=== PATIENT | female | born 1940 | race Asian ===

== ENCOUNTER 2017-12-28 04:12 | Emergency (ER) | payer MEDICARE, OTHER ==
[2017-12-28] MEDS ORDERED: KETOROLAC 60 MG/2 ML VIAL IM STA (04:42)
--- NOTE | 2017-12-28 04:51 | ED Physician Documentation ---
History of Present Illness - Stated complaint Stated Complaint: NECK,LT SHOULDER PAIN - Chief complaint Chief Complaint: General - History obtained from History obtained from: Patient - Additonal information Additional information: 77-year-old female presents to the emergency department with chronic pain. The patient has chronic neck pain and head pain. Today the patient had ongoing symptoms despite taking Tylenol. The patient's pain in her left paraspinal muscles are her typical pain that goes into her trapezius. The patient denies new or different trauma. The patient denies vision changes, fever, motor weakness, sensory changes, lower leg weakness or saddle anesthesia. The patient has been evaluated for this by her primary care and has had an extensive workup per the and . The patient denies chest pain, shortness of breath, dyspnea on exertion. Symptoms are described as moderate. No other associated symptoms. No triggering factors Review of Systems Constitutional: denies: Fever, Chills Eyes: denies: Decreased vision Ears: denies: Ear pain Nose: denies: Congestion Throat: denies: Sore throat Cardiac: denies: Chest pain / pressure Respiratory: denies: Cough GI: denies: Abdominal Pain Musculoskeletal: reports: Neck pain. denies: Back pain, Joint swelling Neurologic: reports: Headache. denies: Focal weakness, Numbness, Difficulty speaking, Near syncope, Confused, Altered mental status, LOC Immunocompromised: denies: Chemotherapy PD PAST MEDICAL HISTORY - Past Medical History Cardiovascular: Hypertension Respiratory: Shortness of breath Endocrine/Autoimmune: HyPOthyroidism GI: GERD : None HEENT: None Psych: Depression Musculoskeletal: Osteoarthritis Derm: None - Past Surgical History Past Surgical History: Yes Ortho: Carpal Tunnel surgery HEENT: Cataracts - Present Medications Home Medications: Ambulatory Orders Medication Instructions Recorded Confirmed Albuterol [Ventolin Hfa] 2 puffs INH Q4H PRN 03/22/14 04/16/16 Aspirin [Aspir 81] 81 mg ORAL DAILY 03/22/14 04/16/16 Levothyroxine [Synthroid] 50 mcg ORAL DAILY 03/22/14 04/16/16 Omeprazole/Sodium Bicarbonate 20 mg ORAL DAILY 03/22/14 04/16/16 [Omeprazole-Bicarb 20-1,100 Cap] Alendronate [Fosamax] 70 mg PO DAILY 04/16/16 04/16/16 Cholecalciferol (Vitamin D3) 2,000 unit PO 12/28/17 [Vitamin D] - Allergies Allergies/Adverse Reactions: Allergies Allergy/AdvReac Type Severity Reaction Status Date / Time Eeojbbq-Ayx-Iqa Reductase AdvReac Unknown Verified 12/28/17 04:28 Inhibitor - Social History Does the pt smoke?: No Smoking Status: Never smoker Does the pt have substance abuse?: No - Immunizations Immunizations are current?: No Immunizations: Other immun not current PD ED PE NORMAL - General General: Alert and oriented X 3, No acute distress - HEENT HEENT: Atraumatic, PERRL, EOMI, Ears normal - Neck Neck: Supple, no meningeal sign, No bruit, Other (The patient has full active range of motion of the neck, patient has no tenderness along the spinous processes. The patient has tenderness in the left paraspinal muscles, trapezius. There is no erythematous changes, no bogginess, no crepitus or subcutaneous emphysema. There is no cellulitis or signs of abscess. 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, No motor deficit, Normal speech - Psych Psych: Normal mood PD ED PE EXPANDED - HEENT HEENT Visual: 1 - tenderness 2 - tenderness Results - Vitals Vitals: Vital Signs - 24 hr 12/28/17 12/28/17 12/28/17 04:23 05:03 05:44 Temperature 36.6 C Heart Rate 61 63 Respiratory 20 20 Rate Blood Pressure 154/137 H 155/99 H 166/86 H O2 Saturation 98 97 Oxygen O2 Source Room air - EKG (time done) 04:21 Rate: Rate (enter#) Rhythm: NSR Intervals: Normal [place], QRS normal Ischemia: Non specific changes Other comments: Other comments (Normal sinus rhythm, no acute ischemic changes when compared to a recent EKG) Compare to prior EKG: Unchanged from prior EKG - Rads (name of study) CT Head/Neck Radiology: Final report received (Impression of the CT head no acute intracranial abnormality. CT of the cervical spine no acute fracture or bony abnormality) PD MEDICAL DECISION MAKING - Sepsis Event Vital Signs: Vital Signs - 24 hr 12/28/17 12/28/17 12/28/17 04:23 05:03 05:44 Temperature 36.6 C Heart Rate 61 63 Respiratory 20 20 Rate Blood Pressure 154/137 H 155/99 H 166/86 H O2 Saturation 98 97 Oxygen O2 Source Room air Departure - Departure Disposition: 01 Home, Self Care Clinical Impression: Cervical muscle strain Qualifiers: Encounter type: initial encounter Qualified Code(s): S16.1XXA - Strain of muscle, fascia and tendon at neck level, initial encounter Headache Qualifiers: Headache type: unspecified Headache chronicity pattern: unspecified pattern Intractability: not intractable Qualified Code(s): R51 - Headache Condition: Good Comments: Please follow-up with your primary care doctor this coming week for further workup and management of your chronic pain. Please return to the emergency department immediately for worsening symptoms or any concerns
--- NOTE | 2017-12-28 05:41 | CT Report ---
Procedure Date: 12/28/2017 Accession Number: [id number] / [id number] Procedure: CT - Head W/O CPT Code: FULL RESULT: EXAM: CT HEAD EXAM DATE: 12/28/2017 05:11 AM. CLINICAL HISTORY: Head/neck pain. COMPARISON: CT head 01/11/2008. TECHNIQUE: Multiaxial CT images were obtained from the foramen magnum to the vertex. Reformats: Coronal. IV contrast: None. In accordance with CT protocol optimization, one or more of the following dose reduction techniques were utilized for this exam: automated exposure control, adjustment of mA and/or KV based on patient size, or use of iterative reconstructive technique. FINDINGS: Parenchyma: No intraparenchymal hemorrhage. No evidence of mass, midline shift, or CT findings of infarction. Prieto-white differentiation is distinct. There is mild chronic microvascular changes in the deep white matter. Extraaxial Spaces: There is mild age-appropriate generalized cerebral volume loss. No subdural or epidural collections identified. There is an ossified protrusion arising from the inner table of the left frontal calvarium measuring approximately 13 mm in transverse diameter and 9 mm in depth. This may represent an osteoma or small calcified meningioma. This is unchanged compared to 2007. Ventricles: Normal in size and position. Sinuses and Orbits: Imaged paranasal sinuses, orbits, and mastoids show no significant abnormality. Bones: No evidence of fracture or calvarial defect. Other: None. IMPRESSION: 1. No acute intracranial abnormality. 2. There is a 13 x 9 mm osseous protuberance from the inner table of the left frontal calvarium. This could represent a small osteoma or calcified meningioma. This is unchanged compared to the prior CT on 01/11/2008. 3. Mild age-related generalized cerebral volume loss and chronic microvascular change. RADIA
[2017-12-28 05:45] VITALS: BP 166/86
--- NOTE | 2017-12-28 05:49 | CT Report ---
Procedure Date: 12/28/2017 Accession Number: [id number] / [id number] Procedure: CT - Cervical Spine W/O CPT Code: FULL RESULT: EXAM: CT CERVICAL SPINE WITHOUT CONTRAST DATE: 12/28/2017 05:16 AM. HISTORY: Head/neck pain. COMPARISONS: None. TECHNIQUE: Thin-section axial images were acquired of the cervical spine without contrast. Post-processing: Coronal and sagittal reformats. Other: None. In accordance with CT protocol optimization, one or more of the following dose reduction techniques were utilized for this exam: automated exposure control, adjustment of mA and/or KV based on patient size, or use of iterative reconstructive technique. FINDINGS: Alignment: No scoliosis or spondylolisthesis. Bones: No fracture or bone lesion. Interspace Levels/Facets: C1-C2: Unremarkable. C2-C3: There is mild ligamentum flavum ossification to the right of midline. No significant canal or foraminal stenosis. C3-C4: There is mild left facet hypertrophy. No significant canal or foraminal stenosis. C4-C5: Mild anterior spurring and disk bulging. There is mild to moderate left facet hypertrophy. No significant canal or foraminal stenosis. C5-C6: Mild anterior spurring and disk bulging. Mild left facet hypertrophy. No significant canal or foraminal stenosis. C6-C7: Mild anterior spurring. No significant canal or foraminal stenosis. C7-T1: Mild anterior spurring. Ligamentum flavum ossification is present on the right. No significant canal or foraminal stenosis. Musculature: Unremarkable. Other: The paravertebral and prevertebral soft tissues are unremarkable. The lung apices are clear. IMPRESSION: 1. No evidence of a cervical spine fracture or subluxation. 2. Yqfc-wb-bazhfknq multilevel cervical spondylosis. There is no significant canal or neural foramen stenosis at any level. RADIA
== END 2017-12-28 06:33 | disposition home or self-care (01) ==
LOC: ED 04:12
DX: S16.1XXA Strain of muscle, fascia and tendon at neck level, initial encounter (principal); X58.XXXA Exposure to other specified factors, initial encounter; R51 Headache; I10 Essential (primary) hypertension; M19.90 Unspecified osteoarthritis, unspecified site; Z79.82 Long term (current) use of aspirin
CPT/HCPCS: 70450; 72125; 93005; 96372; 99283

== ENCOUNTER 2018-03-28 18:53 | Emergency (ER) | payer MEDICARE, OTHER ==
[2018-03-28] MEDS ORDERED: IOPAMIDOL-300 100 ML VIAL IVP ONE ×2 (18:54→21:20)
--- NOTE | 2018-03-28 19:20 | ED Physician Documentation ---
PD HPI HEENT - Stated complaint Stated Complaint: LT EAR RINGING - Chief complaint Chief Complaint: Heent - History obtained from History obtained from: Patient, Family - History of Present Illness Timing - onset: Yesterday (Starting yesterday evening she noticed pulsatility that is quite bothersome in her left ear. It is worse when she is laying down on either side and it kept her from sleeping all last night. It is associated with a slight increase in her chronic unsteadiness. She denies any specific chest pain or trouble breathing. She is never had this before.) Review of Systems Constitutional: denies: Fever, Chills Eyes: denies: Loss of vision, Decreased vision, Photophobia Ears: reports: Tinnitus/ringing. denies: Loss of hearing, Ear pain, Drainage/discharge, Foreign body Nose: denies: Rhinorrhea / runny nose, Congestion PD PAST MEDICAL HISTORY - Past Medical History Cardiovascular: Hypertension Respiratory: Shortness of breath Endocrine/Autoimmune: HyPOthyroidism GI: GERD : None HEENT: None Psych: Depression Musculoskeletal: Osteoarthritis Derm: None - Past Surgical History Past Surgical History: Yes Ortho: Carpal Tunnel surgery HEENT: Cataracts - Present Medications Home Medications: Ambulatory Orders Medication Instructions Recorded Confirmed Albuterol [Ventolin Hfa] 2 puffs INH Q4H PRN 03/22/14 04/16/16 Aspirin [Aspir 81] 81 mg ORAL DAILY 03/22/14 04/16/16 Levothyroxine [Synthroid] 50 mcg ORAL DAILY 03/22/14 04/16/16 Omeprazole/Sodium Bicarbonate 20 mg ORAL DAILY 03/22/14 04/16/16 [Omeprazole-Bicarb 20-1,100 Cap] Alendronate [Fosamax] 70 mg PO DAILY 04/16/16 04/16/16 Cholecalciferol (Vitamin D3) 2,000 unit PO 12/28/17 [Vitamin D] - Allergies Allergies/Adverse Reactions: Allergies Allergy/AdvReac Type Severity Reaction Status Date / Time Vorhtph-Fsa-Btb Reductase AdvReac Unknown Verified 03/28/18 19:00 Inhibitor - Social History Does the pt smoke?: No Smoking Status: Never smoker Does the pt have substance abuse?: No - Immunizations Immunizations are current?: No Immunizations: Other immun not current - POLST Patient has POLST: No PD ED PE NORMAL - Vitals Vital signs reviewed: Yes - General General: Alert and oriented X 3, No acute distress - HEENT HEENT: PERRL, EOMI, Other (TMs are normal without significant cerumen load, no carotid bruit.) - Cardiac Cardiac: RRR, No murmur - Respiratory Respiratory: No respiratory distress, Clear bilaterally - Abdomen Abdomen: Non tender - Extremities Extremities: No edema, No calf tenderness / cord - Neuro Neuro: Alert and oriented X 3, Normal speech Results - Vitals Vitals: Vital Signs - 24 hr 03/28/18 18:56 Temperature 36.5 C Heart Rate 77 Respiratory 16 Rate Blood Pressure 163/77 H O2 Saturation 97 Oxygen O2 Source Room air - EKG (time done) 1924 Rate: Rate (enter#) (72) Rhythm: NSR [place]: LAD Intervals: Normal [place] QRS: Low voltage Ischemia: Normal ST segments Computer interpretation: Agree with computer - Rads (name of study) CTA neck Radiology: EMP read contemporaneously (Multifocal stenosis concerning for some type of vasculitis.) PD MEDICAL DECISION MAKING - ED course ED course: 77-year-old woman with new pulsatile tinnitus in the left ear. Concern for something like carotid dissection, however CT angiogram does not show anything like this, there is a concern for intracranial vasculitis. She has no strokelike symptoms, no headaches. Follow-up was advised. - Sepsis Event Vital Signs: Vital Signs - 24 hr 03/28/18 18:56 Temperature 36.5 C Heart Rate 77 Respiratory 16 Rate Blood Pressure 163/77 H O2 Saturation 97 Oxygen O2 Source Room air Departure - Departure Disposition: 01 Home, Self Care Clinical Impression: Pulsatile tinnitus of left ear, Vasculitis Condition: Good Record reviewed to determine appropriate education?: Yes Comments: Your lab work is normal. The CAT scan of your brain with contrast is concerning for some type of vasculitis, this would be an inflammatory Disease of the blood vessels. Close follow-up is necessary. Follow-up with your doctor tomorrow to discuss appropriate referrals for this. Take a baby aspirin a day until otherwise advised.
[2018-03-28 19:43] LABS: BASOPHILS # (AUTO) 0.1 10^3/uL (0.0-0.1); BASOPHILS % (AUTO) 1.4 %; EOSINOPHILS # (AUTO) 0.2 10^3/uL (0.0-0.7); HGB - HEMOGLOBIN 14.8 g/dL (12.0-16.0); LYMPHOCYTES # (AUTO) 1.9 10^3/uL (1.5-3.5); LYMPHOCYTES % (AUTO) 42.7 %; MEAN CORPUSCULAR HEMOGLOBIN 29.3 pg (27.0-31.0); MEAN CORPUSCULAR HGB CONC 33.8 g/dL (32.0-36.0); MEAN CORPUSCULAR VOLUME 86.7 fL (81.0-99.0); MEAN PLATELET VOLUME 7.3 fL (7.9-10.8); MONOCYTES # (AUTO) 0.3 10^3/uL (0.0-1.0); MONOCYTES % (AUTO) 5.9 %; PLT - PLATELET COUNT 198 10^3/uL (130-450); RED BLOOD COUNT 5.04 10^6/uL (4.20-5.40); RED CELL DISTRIBUTION WIDTH 13.6 % (12.0-15.0); WHITE BLOOD COUNT 4.4 x10^3/uL (4.8-10.8)
[2018-03-28 20:05] LABS: ALBUMIN 4.2 g/dL (3.2-5.5); ALBUMIN/GLOBULIN RATIO 1.3 (1.0-2.2); BILIRUBIN,TOTAL 0.6 mg/dL (0.2-1.0); CALCIUM 9.6 mg/dL (8.5-10.3); CREATININE 0.8 mg/dL (0.4-1.0); TOTAL PROTEIN 7.5 g/dL (6.7-8.2)
[2018-03-28] MEDS ORDERED: IOPAMIDOL-300 100 ML VIAL ONE (20:31)
--- NOTE | 2018-03-28 21:59 | CT Report ---
Reason: pulsatile tinnitus with left neck pain Procedure Date: 03/28/2018 Accession Number: [id number] / [id number] Procedure: CT - Neck Angio CPT Code: FULL RESULT: EXAM: CT ANGIOGRAM NECK. EXAM DATE: 03/28/2018 09:16 PM. CLINICAL HISTORY: Pulsatile tinnitus with left neck pain. COMPARISON: CT head 12/28/2017. TECHNIQUE: Routine axial helical imaging was performed from the skull base through the aortic arch. Reconstructions: Routine multiplanar 3D MIP reconstructions. IV Contrast: 80 mL ISOVUE 300. Evaluation of arterial stenosis is based on a NASCET method of measurement. In accordance with CT protocol optimization, one or more of the following dose reduction techniques were utilized for this exam: automated exposure control, adjustment of mA and/or KV based on patient size, or use of iterative reconstructive technique. FINDINGS: Right Carotid: The common carotid, internal carotid, and external carotid arteries are widely patent. No dissection, significant atherosclerotic plaque, or calcification identified. Left Carotid: The common carotid, internal carotid, and external carotid arteries are widely patent. No dissection is identified. Trace atherosclerotic plaque is seen along the posterior aspect of the carotid bulb. Vertebrals: No hemodynamically significant narrowing or abrupt caliber change is present in the vertebral artery. The left vertebral artery is slightly dominant. There is minimal narrowing at the origin of the left vertebral artery. Intracranial Circulation: Not seen in its entirety. There is an anterior communicating artery present. There is mild to moderate stenosis involving the proximal M1 segment of the left MCA. A high-grade stenosis is present at the origin of the A1 segment left MAT. There is moderate to severe stenosis involving the supraclinoid left ICA extending to the carotid terminus. Moderate stenoses are present in the A1 segment of the left MAT. There is an anterior communicating artery present. Minimal narrowing is seen at the origin of the A1 segment of the right MAT and in the M1 segment of the right MCA. No high-grade stenosis is seen in either distal vertebral artery or on the basilar trunk. A slightly narrowed appearance to the left vertebral artery where it enters the dura was felt to be physiologic. Expected enhancement is seen in the transverse sinus bilaterally. Atherosclerotic plaque is seen involving the cavernous ICA bilaterally with mild narrowing present. Other: Great vessel origins are patent. No mass is present in either parotid gland or submandibular gland. There are small hypervascular nodules measuring under 5 mm in the right thyroid lobe. No mass is present in either orbit. No bulky lymphadenopathy is identified along either internal jugular chain. Visualized lung apices are clear. Mastoid air cells and the middle ear cavity are well-aerated bilaterally. No suspicious lytic or blastic region is present involving the skull base. IMPRESSION: 1. No hemodynamically significant stenosis is present in either cervical ICA or either cervical vertebral artery. There is minimal narrowing at the origin of the dominant left vertebral artery. 2. Stenoses are seen in the anterior circulation greater on the left relative to the right. This might well be on the basis of atherosclerosis. The involvement of the carotid terminus on the left raises the possibility of other etiologies including a vasculopathy such as a moyamoya-like process. 3. No significant narrowing is seen in the posterior circulation. 4. Expected enhancement is seen in the major dural venous sinuses. 5. Small enhancing nodules are seen in the right thyroid lobe. CT cannot distinguish benign from malignant thyroid disease. 6. Middle ear cavity and mastoid air cells are well aerated bilaterally. RADIA
[2018-03-28 22:13] VITALS: BP 179/93
== END 2018-03-28 22:19 | disposition home or self-care (01) ==
LOC: ED 18:53
DX: H93.A2 Pulsatile tinnitus, left ear (principal); I67.7 Cerebral arteritis, not elsewhere classified; I10 Essential (primary) hypertension; E03.9 Hypothyroidism, unspecified; Z79.82 Long term (current) use of aspirin
CPT/HCPCS: 36415; 70498; 80053; 83690; 84484; 85025; 93005; 99283; Q9967

== ENCOUNTER 2018-06-23 08:31 | Emergency (ER) | payer MEDICARE, OTHER ==
--- NOTE | 2018-06-23 08:51 | ED Physician Documentation ---
History of Present Illness - Stated complaint Stated Complaint: SIDE PX - Chief complaint Chief Complaint: General - Additonal information Additional information: hx from pt 77 female to ED with RUQ pain onset approx 45 min ago now resolved was severe no fever no cough no soa no NVD no urinary sx states hx of same many times in the past - sometimes right sided sometimes left sided - has seen PMD Dr Finch and had urine blood and CT scan and no cause has been identified no recent illness travel no prior surgery Review of Systems Constitutional: denies: Fever, Chills Cardiac: denies: Chest pain / pressure Respiratory: denies: Dyspnea GI: reports: Abdominal Pain. denies: Nausea, Vomiting, Diarrhea : denies: Dysuria Musculoskeletal: denies: Back pain Endocrine: denies: Easy bruising / bleeding Immunocompromised: denies: Immunocompromised PD PAST MEDICAL HISTORY - Past Medical History Cardiovascular: Hypertension Respiratory: Shortness of breath Endocrine/Autoimmune: HyPOthyroidism GI: GERD : None HEENT: None Psych: Depression Musculoskeletal: Osteoarthritis Derm: None - Past Surgical History Past Surgical History: Yes Ortho: Carpal Tunnel surgery HEENT: Cataracts - Present Medications Home Medications: Ambulatory Orders Medication Instructions Recorded Confirmed Albuterol [Ventolin Hfa] 2 puffs INH Q4H PRN 03/22/14 04/16/16 Aspirin [Aspir 81] 81 mg ORAL DAILY 03/22/14 04/16/16 Levothyroxine [Synthroid] 50 mcg ORAL DAILY 03/22/14 04/16/16 Omeprazole/Sodium Bicarbonate 20 mg ORAL DAILY 03/22/14 04/16/16 [Omeprazole-Bicarb 20-1,100 Cap] Cholecalciferol (Vitamin D3) 2,000 unit PO 12/28/17 [Vitamin D] Ca/D3/Mag Ox/Zinc/Desk Top Publisher/Antonio/Bor 600 tab PO 06/23/18 [Calcium 305-K9-[place] Chw Tb] Chlorpheniramine Maleate [Allergy 4 mg PO PRN 06/23/18 4-Hour] Cholecalciferol (Vitamin D3) 2,000 unit PO 06/23/18 [Vitamin D3] Garlic 1,250 mg PO 06/23/18 Ibuprofen 200 tab PRN 06/23/18 Multivitamin [Multivitamins] 1 06/23/18 [place]-3/Dha/Epa/Fish Oil [Fish Oil 2 each PO 06/23/18 1,000 mg Softgel] - Allergies Allergies/Adverse Reactions: Allergies Allergy/AdvReac Type Severity Reaction Status Date / Time Imjpecs-Qgx-Wjw Reductase AdvReac Unknown Verified 06/23/18 08:40 Inhibitor - Social History Does the pt smoke?: No Smoking Status: Never smoker Does the pt have substance abuse?: No - Immunizations Immunizations are current?: No Immunizations: Other immun not current - POLST Patient has POLST: No PD ED PE NORMAL - Vitals Vital signs reviewed: Yes - General General: Alert and oriented X 3 - Neck Neck: Supple, no meningeal sign - Cardiac Cardiac: RRR - Respiratory Respiratory: No respiratory distress, Clear bilaterally - Abdomen Abdomen: Soft, Other (mild TTP RUQ neg murphys no rash no scars no pulsatile mass) - Derm Derm: Normal color - Extremities Extremities: No deformity, No tenderness to palpate, Normal ROM s pain, No edema, No calf tenderness / cord - Neuro Neuro: Alert and oriented X 3 Results - Vitals Vitals: Vital Signs - 24 hr 06/23/18 06/23/18 06/23/18 08:35 08:48 11:30 Temperature 36 C L 36.6 C Heart Rate 83 81 69 Respiratory 16 14 15 Rate Blood Pressure 147/71 H 155/75 H 158/68 H O2 Saturation 97 98 99 Oxygen O2 Source Room air - EKG (time done) 0928 Rate: Rate (enter#) (69) Rhythm: NSR [place]: Normal Intervals: Normal [place] QRS: Poor R wave progression Ischemia: Non specific changes - Labs Labs: Laboratory Tests 06/23/18 06/23/18 06/23/18 08:55 09:15 09:50 WBC 4.8 RBC 5.13 Hgb 15.0 Hct 45.2 MCV 88.2 MCH 29.3 MCHC 33.2 RDW 13.9 Plt Count 190 MPV 7.6 L Neut # (Auto) 2.7 Lymph # (Auto) 1.6 [place] # (Auto) 0.3 Eos # (Auto) 0.2 Baso # (Auto) 0.1 Absolute Nucleated RBC 0.01 Nucleated RBC % 0.1 Sodium 139 Potassium 4.2 Chloride 99 L Carbon Dioxide 32 Anion Gap 8.0 BUN 11 Creatinine 0.6 Estimated GFR (MDRD) 97 Glucose 100 Calcium 9.9 Total Bilirubin 0.6 AST 33 ALT 29 Alkaline Phosphatase 54 Troponin I Total Protein 7.6 Albumin 4.4 Globulin 3.2 Albumin/Globulin Ratio 1.4 Lipase 53 H Urine Color LIGHT YELLOW Urine Clarity CLEAR Urine pH 6.5 Ur Specific [place] <=1.005 Urine Protein NEGATIVE Urine Glucose (UA) NEGATIVE Urine Ketones NEGATIVE Urine Occult Blood NEGATIVE Urine Nitrite NEGATIVE Urine Bilirubin NEGATIVE Urine Urobilinogen 0.2 (NORMAL) Ur Leukocyte Esterase NEGATIVE Ur Microscopic Review NOT INDICATED Urine Culture Comments NOT INDICATED 06/23/18 09:50 WBC RBC Hgb Hct MCV MCH MCHC RDW Plt Count MPV Neut # (Auto) Lymph # (Auto) [place] # (Auto) Eos # (Auto) Baso # (Auto) Absolute Nucleated RBC Nucleated RBC % Sodium Potassium Chloride Carbon Dioxide Anion Gap BUN Creatinine Estimated GFR (MDRD) Glucose Calcium Total Bilirubin AST ALT Alkaline Phosphatase Troponin I < 0.04 Total Protein Albumin Globulin Albumin/Globulin Ratio Lipase Urine Color Urine Clarity Urine pH Ur Specific [place] Urine Protein Urine Glucose (UA) Urine Ketones Urine Occult Blood Urine Nitrite Urine Bilirubin Urine Urobilinogen Ur Leukocyte Esterase Ur Microscopic Review Urine Culture Comments - Rads (name of study) ruq sono Radiology: See rad report (gallstones, no acute kira) CXR Radiology: See rad report (NACPD) Departure - Departure Disposition: 01 Home, Self Care Clinical Impression: Gallstones Condition: Good Instructions: ED Gallstone W Biliary Colic Follow-Up: Mookie Giraldo MD [Provider Admit Priv/Credential] - (call to schedule an appointment to discuss getting your gallbladder removed) ZACH PEREZ [Primary Care Provider] - Comments: It appears that the cause of the intermittent upper abdominal pain is gallstones. Thankfully the gallbladder is not infected. And you pain has subsided for today So it is safe for you to go home But you need to follow up with the surgical office to discuss getting your gallbladder removed. In the mean time avoid any rich fatty or greasy food as that will aggravate the gallbladder. If the pain returns and is severe, if you get a fever, if you have yellow eyes or skin please come back to the ER right away.
[2018-06-23 09:39] LABS: BASOPHILS # (AUTO) 0.1 10^3/uL (0.0-0.1); BASOPHILS % (AUTO) 1.1 %; EOSINOPHILS # (AUTO) 0.2 10^3/uL (0.0-0.7); EOSINOPHILS % (AUTO) 3.5 %; LYMPHOCYTES # (AUTO) 1.6 10^3/uL (1.5-3.5); LYMPHOCYTES % (AUTO) 32.8 %; MEAN CORPUSCULAR HEMOGLOBIN 29.3 pg (27.0-31.0); MEAN CORPUSCULAR HGB CONC 33.2 g/dL (32.0-36.0); MEAN CORPUSCULAR VOLUME 88.2 fL (81.0-99.0); MEAN PLATELET VOLUME 7.6 fL (7.9-10.8); MONOCYTES # (AUTO) 0.3 10^3/uL (0.0-1.0); MONOCYTES % (AUTO) 5.9 %; NEUTROPHILS # (AUTO) 2.7 10^3/uL (1.5-6.6); NEUTROPHILS % (AUTO) 56.7 %; PLT - PLATELET COUNT 190 10^3/uL (130-450); RED BLOOD COUNT 5.13 10^6/uL (4.20-5.40); RED CELL DISTRIBUTION WIDTH 13.9 % (12.0-15.0); WHITE BLOOD COUNT 4.8 x10^3/uL (4.8-10.8)
[2018-06-23 09:47] LABS: BILIRUBIN,URINE NEGATIVE (NEGATIVE); GLUCOSE, URINE (UA) NEGATIVE (NEGATIVE); KETONES,URINE (UA) NEGATIVE (NEGATIVE); LEUKOCYTE ESTERASE, URINE NEGATIVE (NEGATIVE); NITRITE,URINE NEGATIVE (NEGATIVE); OCCULT BLOOD,URINE NEGATIVE (NEGATIVE); PH,URINE 6.5 PH (5.0-7.5); PROTEIN,URINE NEGATIVE (NEGATIVE); UROBILINOGEN,URINE 0.2 (NORMAL) E.U./dL (NORMAL)
[2018-06-23 09:50] LABS: CLARITY,URINE CLEAR (CLEAR)
[2018-06-23 10:10] LABS: ALBUMIN 4.4 g/dL (3.2-5.5); ALBUMIN/GLOBULIN RATIO 1.4 (1.0-2.2); BILIRUBIN,TOTAL 0.6 mg/dL (0.2-1.0); CALCIUM 9.9 mg/dL (8.5-10.3); CREATININE 0.6 mg/dL (0.4-1.0); TOTAL PROTEIN 7.6 g/dL (6.7-8.2)
--- NOTE | 2018-06-23 11:30 | XRAY Report ---
Reason: right sided pain Procedure Date: 06/23/2018 Accession Number: [id number] / [id number] Procedure: XR - Chest 2 View X-Ray CPT Code: 80031 FULL RESULT: EXAM: CHEST RADIOGRAPHY EXAM DATE: 06/23/2018 11:23 AM. CLINICAL HISTORY: Right-sided pain. COMPARISON: [facility] W/PA CHEST RT 04/16/2016. TECHNIQUE: 2 views. FINDINGS: Lungs/Pleura: No focal opacities evident. No pleural effusion. No pneumothorax. Normal volumes. Mediastinum: The heart and mediastinal contour is stable including aortic arch calcifications. Other: None. IMPRESSION: No acute cardiopulmonary abnormality. RADIA
--- NOTE | 2018-06-23 11:51 | Ultrasound Report ---
Reason: ruq pain Procedure Date: 06/23/2018 Accession Number: [id number] / [id number] Procedure: US - Abdomen Limited CPT Code: FULL RESULT: EXAM: ABDOMEN ULTRASOUND LIMITED, RUQ EXAM DATE: 06/23/2018 11:26 AM. CLINICAL HISTORY: Right upper quadrant pain. COMPARISON: None. TECHNIQUE: Real-time scanning was performed with static images obtained. FINDINGS: Liver: Normal in size and echotexture. There is a left lobe of the liver simple cyst which measures up to 1.1 cm and the right lobe of the liver measures at least 11.2 cm. Main portal vein flow: Hepatopetal. Gallbladder: The gallbladder is moderately distended and demonstrates a thin wall measuring 1.6 mm without pericholecystic fluid or wall thickening. A calculus is identified within the gallbladder neck which is mobile within the neck. The patient demonstrates diffuse right upper quadrant tenderness during the examination but does not demonstrate a sonographic Najera's sign. Biliary System: CBD measures 3 mm. No intrahepatic or extrahepatic ductal dilatation. Other: None. IMPRESSION: Cholelithiasis without sonographic criteria for cholecystitis. RADIA
[2018-06-23 12:57] VITALS: BP 157/87
== END 2018-06-23 13:00 | disposition home or self-care (01) ==
LOC: ED 08:31
DX: K80.80 Other cholelithiasis without obstruction (principal); I44.4 Left anterior fascicular block; I10 Essential (primary) hypertension; E03.9 Hypothyroidism, unspecified; Z79.82 Long term (current) use of aspirin
CPT/HCPCS: 36415; 71046; 76705; 80053; 81001; 81003; 83690; 84484; 85025; 87086; 93005; 99283; 99284

== ENCOUNTER 2020-06-03 13:45 | Emergency (ER) | payer MEDICARE, OTHER ==
[2020-06-03 14:34] LABS: BILIRUBIN,URINE NEGATIVE (NEGATIVE); GLUCOSE, URINE (UA) NEGATIVE (NEGATIVE); KETONES,URINE (UA) NEGATIVE (NEGATIVE); LEUKOCYTE ESTERASE, URINE NEGATIVE (NEGATIVE); NITRITE,URINE NEGATIVE (NEGATIVE); OCCULT BLOOD,URINE SMALL (NEGATIVE); PH,URINE 6.5 PH (5.0-7.5); PROTEIN,URINE NEGATIVE (NEGATIVE); UROBILINOGEN,URINE 0.2 (NORMAL) E.U./dL (NORMAL)
[2020-06-03 14:35] LABS: CLARITY,URINE CLEAR (CLEAR)
[2020-06-03 14:47] LABS: BACTERIA,URINE None Seen /HPF (None Seen); SQUAMOUS EPITHELIAL CELL,UR NONE SEEN (<= Few)
--- NOTE | 2020-06-03 15:24 | ED Physician Documentation ---
History of Present Illness - Stated complaint Stated Complaint: TREMBLING/HUNGER - Chief complaint Chief Complaint: General - History obtained from History obtained from: Patient - Additonal information Additional information: Pt comes to the ED complaining of feeling shaky and hungry at home. She states she ate a meal, but still felt the same way, and then noticed a cramping pain spread across her chest to both shoulders. This was brief, and lasted only about a minute. Pt denies shortness of breath, fever, cough, nausea, or constipation. No diarrhea. Pt states she currently feels tired and hungry. No other complaints at this time. Review of Systems Ten Systems: 10 systems reviewed and negative Constitutional: reports: Reviewed and negative Eyes: reports: Reviewed and negative Ears: reports: Reviewed and negative Nose: reports: Reviewed and negative Throat: reports: Reviewed and negative Cardiac: reports: Chest pain / pressure Respiratory: reports: Reviewed and negative. denies: Dyspnea GI: reports: Reviewed and negative : reports: Reviewed and negative Skin: reports: Reviewed and negative Musculoskeletal: reports: Reviewed and negative Neurologic: reports: Reviewed and negative Psychiatric: reports: Reviewed and negative Endocrine: reports: Reviewed and negative Immunocompromised: reports: Reviewed and negative PD PAST MEDICAL HISTORY - Past Medical History Cardiovascular: Hypertension Respiratory: Shortness of breath Endocrine/Autoimmune: HyPOthyroidism GI: GERD : None HEENT: None Psych: Depression Musculoskeletal: Osteoarthritis Derm: None - Past Surgical History Past Surgical History: Yes Ortho: Carpal Tunnel surgery HEENT: Cataracts - Present Medications Home Medications: Ambulatory Orders Medication Instructions Recorded Confirmed Albuterol [Ventolin Hfa] 2 puffs INH Q4H PRN 03/22/14 04/16/16 Aspirin [Aspir 81] 81 mg ORAL DAILY 03/22/14 04/16/16 Levothyroxine [Synthroid] 50 mcg ORAL DAILY 03/22/14 04/16/16 Omeprazole/Sodium Bicarbonate 20 mg ORAL DAILY 03/22/14 04/16/16 [Omeprazole-Bicarb 20-1,100 Cap] Cholecalciferol (Vitamin D3) 2,000 unit PO 12/28/17 [Vitamin D] Ca/D3/Mag Ox/Zinc/Shoulder Boner/Antonio/Bor 600 tab PO 06/23/18 [Calcium 178-Q0-Ebiwbujz Chw Tb] Chlorpheniramine Maleate [Allergy 4 mg PO PRN 06/23/18 4-Hour] Cholecalciferol (Vitamin D3) 2,000 unit PO 06/23/18 [Vitamin D3] Garlic 1,250 mg PO 06/23/18 Ibuprofen 200 tab PRN 06/23/18 Multivitamin [Multivitamins] 1 06/23/18 [place]-3/Dha/Epa/Fish Oil [Fish Oil 2 each PO 06/23/18 1,000 mg Softgel] - Allergies Allergies/Adverse Reactions: Allergies Allergy/AdvReac Type Severity Reaction Status Date / Time Ydygdde-Wtr-Luw Reductase AdvReac Unknown Verified 06/23/18 08:40 Inhibitor - Social History Does the pt smoke?: No Smoking Status: Never smoker Does the pt have substance abuse?: No - Immunizations Immunizations are current?: No Immunizations: Other immun not current - POLST Patient has POLST: No PD ED PE NORMAL - Vitals Vital signs reviewed: Yes - General General: Alert and oriented X 3, No acute distress - HEENT HEENT: Atraumatic, PERRL, EOMI, Moist mucous membranes - Neck Neck: Supple, no meningeal sign - Cardiac Cardiac: RRR, No murmur, Strong equal pulses - Respiratory Respiratory: No respiratory distress, Clear bilaterally - Abdomen Abdomen: Soft, Non tender, Non distended - Back Back: No CVA TTP - Derm Derm: Normal color, Warm and dry, No rash - Extremities Extremities: No deformity, No edema, No calf tenderness / cord - Neuro Neuro: Alert and oriented X 3, Other (Grossly normal. No tremors.) - Psych Psych: Normal mood, Normal affect Results - Vitals Vitals: Vital Signs - 24 hr 06/03/20 06/03/20 06/03/20 13:51 15:47 16:01 Temperature 36.5 C Heart Rate 81 79 83 Respiratory 18 18 Rate Blood Pressure 176/86 H 161/95 H 157/90 H O2 Saturation 99 99 06/03/20 06/03/20 16:30 18:08 Temperature Heart Rate 78 104 H Respiratory 18 16 Rate Blood Pressure 165/120 H 170/92 H O2 Saturation 98 98 Oxygen O2 Source Room air - Labs Labs: Laboratory Tests 06/03/20 06/03/20 06/03/20 14:22 15:46 15:46 WBC 5.6 RBC 5.49 H Hgb 15.3 Hct 50.6 H MCV 92.2 MCH 27.9 MCHC 30.2 L RDW 13.2 Plt Count 202 MPV 9.6 Neut # (Auto) 3.9 Lymph # (Auto) 1.1 L [place] # (Auto) 0.4 Eos # (Auto) 0.1 Baso # (Auto) 0.0 Absolute Nucleated RBC 0.00 Nucleated RBC % 0.0 Sodium 138 Potassium 3.7 Chloride 98 L Carbon Dioxide 29 Anion Gap 11.0 BUN 15 Creatinine 0.6 Estimated GFR (MDRD) 97 Glucose 183 H Calcium 9.6 Total Bilirubin 0.8 AST 239 H ALT 113 H Alkaline Phosphatase 109 Total Protein 7.5 Albumin 4.2 Globulin 3.3 Albumin/Globulin Ratio 1.3 Lipase 56 H Urine Color YELLOW Urine Clarity CLEAR Urine pH 6.5 Ur Specific [place] 1.010 Urine Protein NEGATIVE Urine Glucose (UA) NEGATIVE Urine Ketones NEGATIVE Urine Occult Blood SMALL H Urine Nitrite NEGATIVE Urine Bilirubin NEGATIVE Urine Urobilinogen 0.2 (NORMAL) Ur Leukocyte Esterase NEGATIVE Urine RBC 6-10 H Urine WBC 0-3 Ur Squamous Epith Cells NONE SEEN Urine Bacteria None Seen PD MEDICAL DECISION MAKING - ED course Complexity details: reviewed results, re-evaluated patient, considered differential, d/w patient ED course: Pt was worked up with EKG, which was unremarkable, and labs, which did not show hypoglycemia, but did show mildly elevated LFT's and lipase. As such, a RUQ US was done to look for biliary disease. This showed a single, mobile gall stone, but no evidence of cholecystitis or choledocholithiasis. A small, nonspecific abnormality of the pancreas was noted by tech, and nonemergent follow-up was recommended by radiologist for further imaging. I have advised the pt of this finding, and that while it does not appear specifically cancerous at this time, it needs to be followed up. I have advised the pt to make an appt with her PCP as soon as possible. Discharge instructions were explained to the pt in her [place] language, which happened to be spoken by her nurse, as well. We have discussed the usual indications for return. Departure - Departure Disposition: 01 Home, Self Care Clinical Impression: Tremulousness Abdominal pain Qualifiers: Abdominal location: right upper quadrant Qualified Code(s): R10.11 - Right upper quadrant pain Condition: Stable Instructions: ED Abdominal Pain Unkn Cause Comments: Your liver and pancreas labs were a little high today. Your ultrasound showed one gall stone, but this is not causing a blockage right now. It is not clear why these labs are elevated, but no acute condition was found. Your pancreas had a small abnormality, which does not appear cancerous at this time, but shou ld be followed up by your doctor. Please make an appointment to be seen for this as soon as possible. Discharge Date/Time: 06/03/20 18:11
[2020-06-03 15:54] LABS: BASOPHILS % (AUTO) 0.7 %; EOSINOPHILS # (AUTO) 0.1 10^3/uL (0.0-0.7); HGB - HEMOGLOBIN 15.3 g/dL (12.0-16.0); LYMPHOCYTES # (AUTO) 1.1 10^3/uL (1.5-3.5); LYMPHOCYTES % (AUTO) 19.9 %; MEAN CORPUSCULAR HEMOGLOBIN 27.9 pg (27.0-31.0); MEAN CORPUSCULAR HGB CONC 30.2 g/dL (32.0-36.0); MEAN CORPUSCULAR VOLUME 92.2 fL (81.0-99.0); MEAN PLATELET VOLUME 9.6 fL (7.9-10.8); MONOCYTES # (AUTO) 0.4 10^3/uL (0.0-1.0); MONOCYTES % (AUTO) 6.5 %; NEUTROPHILS # (AUTO) 3.9 10^3/uL (1.5-6.6); NEUTROPHILS % (AUTO) 70.5 %; PLT - PLATELET COUNT 202 10^3/uL (130-450); RED BLOOD COUNT 5.49 10^6/uL (4.20-5.40); RED CELL DISTRIBUTION WIDTH 13.2 % (12.0-15.0); WHITE BLOOD COUNT 5.6 x10^3/uL (4.8-10.8)
[2020-06-03 16:06] LABS: ALBUMIN 4.2 g/dL (3.2-5.5); ALBUMIN/GLOBULIN RATIO 1.3 (1.0-2.2); BILIRUBIN,TOTAL 0.8 mg/dL (0.2-1.0); CALCIUM 9.6 mg/dL (8.5-10.3); CREATININE 0.6 mg/dL (0.4-1.0); TOTAL PROTEIN 7.5 g/dL (6.7-8.2)
[2020-06-03 18:08] VITALS: BP 170/92
--- NOTE | 2020-06-03 18:28 | Ultrasound Report ---
PROCEDURE: Abdomen Limited INDICATIONS: chest pain, upper abd pain, elev LFT/lipase TECHNIQUE: Real-time scanning was performed of the abdominal and retroperitoneal organs, with image documentatio n. COMPARISON: Limited abdominal ultrasound 06/23/2018.. FINDINGS: Liver: Normal size. Coarsened echotexture. Simple cyst in the left lobe of the liver inferolaterally measuring 0.9 cm. Gallbladder: Gallbladder is nondistended. Small mobile gallstones are present. Gallbladder wall appea rs mildly thickened measuring 6 mm. No pericholecystic fluid. Negative sonographic Najera sign. Biliary ducts: Intrahepatic bile ducts are non-dilated. Extrahepatic bile duct caliber measures 4 m m. Normal is 6-7 mm or less in diameter, or 10 mm or less post-cholecystectomy. Pancreas: Small hypoechoic focus in the pancreas measuring 0.8 x 0.7 x 0.5 cm. The tail was not well seen. Right kidney: Right kidney measures 0.9 cm. Cortex 1.2 cm. No hydronephrosis. IMPRESSION: 1. No convincing evidence of acute cholecystitis. Mild gallbladder wall thickening. Small mobile gall stones. 2. Small cyst or mass in the pancreas measuring is 0.8 cm. -This can be further evaluated on CT pancreas or MRI with IV contrast plus MRCP sequences. This can b e performed on a nonemergent basis. 3. Increased echogenicity of the hepatic parenchyma. This is most commonly seen in hepatic steatosis. Other forms of hepatocellular disease could have a similar appearance. Reviewed by: Dandre Galvan MD on 06/03/2020 5:27 PM [facility] Approved by: Dandre Galvan MD on 06/03/2020 5:27 PM [facility] Station ID: [id number]
== END 2020-06-03 18:11 | disposition home or self-care (01) ==
LOC: ED 13:45
DX: R25.1 Tremor, unspecified (principal); R10.11 Right upper quadrant pain; R07.9 Chest pain, unspecified; K80.20 Calculus of gallbladder without cholecystitis without obstruction; K86.9 Disease of pancreas, unspecified; R74.8 Abnormal levels of other serum enzymes; I10 Essential (primary) hypertension; Z79.82 Long term (current) use of aspirin
CPT/HCPCS: 36415; 80053; 81001; 83690; 85025; 99284

== ENCOUNTER 2021-02-11 04:35 | Observation (INO) | payer MEDICARE, OTHER ==
[2021-02-11] MEDS ORDERED: SODIUM CHLORIDE 0.9% 1,000 ML IV STA (05:03)
--- NOTE | 2021-02-11 05:08 | ED Physician Documentation ---
History of Present Illness - Stated complaint Stated Complaint: L ARM/FACE NUMB, L EAR RINGING - Chief complaint Chief Complaint: Heent - History obtained from History obtained from: Patient, Family () - Additonal information Additional information: 80-year-old woman with history of hypothyroidism, osteoarthritis, chronic rib paresthesias without known cause, presents with left arm tingling upon waking around 3 to 3:30 AM this morning. The tingling appears to have improved, had no exacerbating or relieving factors and is not associated with weakness, chest pain, shortness of breath, other neurological deficit. Review of Systems Ten Systems: 10 systems reviewed and negative Constitutional: denies: Fever, Chills Eyes: denies: Loss of vision Ears: denies: Tinnitus/ringing Cardiac: denies: Chest pain / pressure Respiratory: denies: Dyspnea Neurologic: reports: Numbness. denies: Focal weakness, Difficulty speaking PD PAST MEDICAL HISTORY - Past Medical History Past Medical History: Yes Cardiovascular: Hypertension, High cholesterol Respiratory: Shortness of breath Neuro: Other Endocrine/Autoimmune: HyPOthyroidism GI: GERD : None HEENT: None Psych: Depression Musculoskeletal: Osteoarthritis Derm: None Other Past Medical History: Dizziness - Past Surgical History Past Surgical History: Yes Ortho: Carpal Tunnel surgery HEENT: Cataracts - Present Medications Home Medications: Ambulatory Orders Medication Instructions Recorded Confirmed Albuterol [Ventolin Hfa] 2 puffs INH Q4H PRN 03/22/14 04/16/16 Aspirin [Aspir 81] 81 mg ORAL DAILY 03/22/14 04/16/16 Levothyroxine [Synthroid] 50 mcg ORAL DAILY 03/22/14 04/16/16 Omeprazole/Sodium Bicarbonate 20 mg ORAL DAILY 03/22/14 04/16/16 [Omeprazole-Bicarb 20-1,100 Cap] Cholecalciferol (Vitamin D3) 2,000 unit PO 12/28/17 [Vitamin D] Ca/D3/Mag Ox/Zinc/Pipe Tester/Antonio/Bor 600 tab PO 06/23/18 [Calcium 173-R9-Vurbabab Chw Tb] Chlorpheniramine Maleate [Allergy 4 mg PO PRN 06/23/18 4-Hour] Cholecalciferol (Vitamin D3) 2,000 unit PO 06/23/18 [Vitamin D3] Garlic 1,250 mg PO 06/23/18 Ibuprofen 200 tab PRN 06/23/18 Multivitamin [Multivitamins] 1 06/23/18 [place]-3/Dha/Epa/Fish Oil [Fish Oil 2 each PO 06/23/18 1,000 mg Softgel] - Allergies Allergies/Adverse Reactions: Allergies Allergy/AdvReac Type Severity Reaction Status Date / Time Iugxzfi-Sqn-Gxk Reductase AdvReac Unknown Verified 02/11/21 04:53 Inhibitor - Social History Does the pt smoke?: No Smoking Status: Former smoker Does the pt drink ETOH?: Yes Does the pt have substance abuse?: No - Immunizations Immunizations are current?: No Immunizations: Other immun not current - POLST Patient has POLST: No PD ED PE NORMAL - Vitals Vital signs reviewed: Yes - General General: Alert and oriented X 3, No acute distress, Well developed/nourished - HEENT HEENT: Atraumatic, PERRL, EOMI, Moist mucous membranes, Pharynx benign - Neck Neck: Supple, no meningeal sign - Cardiac Cardiac: RRR - Respiratory Respiratory: No respiratory distress, Clear bilaterally - Abdomen Abdomen: Non tender, Non distended - Derm Derm: Normal color, Warm and dry - Extremities Extremities: No deformity, Other (2+ BL radial pulses) - Neuro Neuro: Alert and oriented X 3, 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 otherwise cerebellar testing, strength, and gait WNL. no neglect. 2 point discrimination intact in LUE) - Psych Psych: Normal mood, Normal affect Results - Vitals Vitals: Vital Signs - 24 hr 02/11/21 02/11/21 02/11/21 04:44 05:27 06:46 Temperature 36.3 C L 36.6 C Heart Rate 78 67 70 Respiratory 13 25 H 18 Rate Blood Pressure 133/103 H 175/89 H 159/87 H O2 Saturation 100 97 98 Oxygen O2 Source Room air - EKG (time done) 0507 Rate: Rate (enter#) (66) Rhythm: NSR [place]: LAD Intervals: Normal FL QRS: Normal Ischemia: Normal ST segments, Other (early transition, abnormal R wave progression seen on previous 06/23/18) Compare to prior EKG: Unchanged from prior EKG Computer interpretation: Agree with computer - Labs Labs: Laboratory Tests 02/11/21 02/11/2102/11/21 05:16 05:16 05:16 WBC 4.4 L RBC 5.33 Hgb 15.4 Hct 47.3 H MCV 88.7 MCH 28.9 MCHC 32.6 RDW 12.9 Plt Count 193 MPV 9.7 Neut # (Auto) 2.3 Lymph # (Auto) 1.6 [place] # (Auto) 0.3 Eos # (Auto) 0.1 Baso # (Auto) 0.1 Absolute Nucleated RBC 0.00 Nucleated RBC % 0.0 Sodium 140 Potassium 4.0 Chloride 102 Carbon Dioxide 28 Anion Gap 10.0 BUN 16 Creatinine 0.6 Estimated GFR (MDRD) 96 Glucose 118 H Calcium 9.6 Total Bilirubin 0.8 AST 27 ALT 26 Alkaline Phosphatase 45 Troponin I High Sens 4.6 Total Protein 7.3 Albumin 4.1 Globulin 3.2 Albumin/Globulin Ratio 1.3 Lipase 39 PD MEDICAL DECISION MAKING - ED course ED course: 80-year-old woman presents with left arm tingling and numbness upon waking this morning around 3-3:30am, persisting but now resolving to the emergency departm ent. Will r/o cardiac or neurologic etiology. 6:30am - patient states the tingling has completely resolved. she now is experiencing prickling pain to the chest wall that improves with ROM of the michaelle ulder. She and her state she has had this pain for months and it has been extensively worked up by her doctors without known cause. denies nausea, diaphoresis. HEART score 2 (age). 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 This is anatomically unrelated to her symptoms given that M1 stenosis should cause contralateral sensory/motor deficits, and her numbness she experienced on the ipsilateral side. She is amenable to stay for MRI/TIA workup. Departure - Departure Disposition: ED Place in Observation Clinical Impression: Numbness of extremity Condition: Stable
[2021-02-11] MEDS ORDERED: IOPAMIDOL-300 50 ML VIAL ONE (05:09)
[2021-02-11 05:21] LABS: BASOPHILS # (AUTO) 0.1 10^3/uL (0.0-0.1); BASOPHILS % (AUTO) 1.8 %; EOSINOPHILS # (AUTO) 0.1 10^3/uL (0.0-0.7); EOSINOPHILS % (AUTO) 3.2 %; HCT - HEMATOCRIT 47.3 % (37.0-47.0); HGB - HEMOGLOBIN 15.4 g/dL (12.0-16.0); LYMPHOCYTES # (AUTO) 1.6 10^3/uL (1.5-3.5); MEAN CORPUSCULAR HEMOGLOBIN 28.9 pg (27.0-31.0); MEAN CORPUSCULAR HGB CONC 32.6 g/dL (32.0-36.0); MEAN CORPUSCULAR VOLUME 88.7 fL (81.0-99.0); MEAN PLATELET VOLUME 9.7 fL (7.9-10.8); MONOCYTES # (AUTO) 0.3 10^3/uL (0.0-1.0); MONOCYTES % (AUTO) 5.7 %; NEUTROPHILS # (AUTO) 2.3 10^3/uL (1.5-6.6); NEUTROPHILS % (AUTO) 52.3 %; PLT - PLATELET COUNT 193 10^3/uL (130-450); RED BLOOD COUNT 5.33 10^6/uL (4.20-5.40); RED CELL DISTRIBUTION WIDTH 12.9 % (12.0-15.0); WHITE BLOOD COUNT 4.4 x10^3/uL (4.8-10.8)
[2021-02-11 05:35] LABS: ALBUMIN 4.1 g/dL (3.2-5.5); ALBUMIN/GLOBULIN RATIO 1.3 (1.0-2.2); BILIRUBIN,TOTAL 0.8 mg/dL (0.2-1.0); CALCIUM 9.6 mg/dL (8.5-10.3); CREATININE 0.6 mg/dL (0.4-1.0); TOTAL PROTEIN 7.3 g/dL (6.7-8.2)
[2021-02-11] MEDS ORDERED: IOPAMIDOL-300 50 ML VIAL PO ONE (06:12)
[2021-02-11] MEDS ORDERED: ASPIRIN 325 MG TABLET PO STA (07:04)
[2021-02-11] MEDS ORDERED: ONDANSETRON ODT 4 MG TABLET TL PRN (07:09)
[2021-02-11] MEDS ORDERED: ONDANSETRON 4 MG/2 ML VIAL IVP PRN (07:09)
[2021-02-11] MEDS ORDERED: ACETAMINOPHEN 325 MG TABLET PO PRN (07:09)
[2021-02-11] MEDS ORDERED: SODIUM CHLORIDE FLUSH 0.9% 10 ML SYRINGE IVP PRN (07:09)
--- NOTE | 2021-02-11 07:31 | XRAY Report ---
PROCEDURE: Chest 1 View X-Ray INDICATIONS: Chest Pain TECHNIQUE: One view of the chest was acquired. COMPARISON: 06/23/2018. FINDINGS: Surgical changes and devices: None. Lungs and pleura: No pleural effusions or pneumothorax. Lungs are clear. Mediastinum: Mediastinal contours appear normal. Heart size is normal. Bones and chest wall: No suspicious bony lesions. Overlying soft tissues appear unremarkable. IMPRESSION: No acute cardiopulmonary disease process. Reviewed by: Ce Salazar MD, PhD on 02/11/2021 7:29 AM PDT Approved by: Ce Salazar MD, PhD on 02/11/2021 7:29 AM PDT Station ID: [id number]
--- NOTE | 2021-02-11 07:41 | CT Report ---
PROCEDURE: ANGIO NECK W INDICATIONS: LUE tingling/numbness, now resolved CONTRAST: IV CONTRAST: Isovue 300 ml: 100 PO CONTRAST: *NO PO CONTRAST TECHNIQUE: After the administration of intravenous contrast, 1.5 mm axial sections acquired from the aortic arch to the [place] of [place]. Coronal 3-D maximum intensity projection (MIP) and/or volume rendering ref ormats were then performed. For radiation dose reduction, the following was used: automated exposur e control, adjustment of mA and/or kV according to patient size. COMPARISON: None. FINDINGS: Image quality: Excellent. Carotid system: The great vessels demonstrate a conventional anatomy as they arise from the aortic a rch. The origins of the common carotid arteries appear patent. The common carotid arteries demonstr ate normal calibers and courses. Mild soft atherosclerotic plaque noted in the report of the right in ternal carotid artery and mild soft and calcified atherosclerotic plaque noted in the origin left int ernal carotid artery which causes less than 50% stenosis of the vessels. Posterior circulation: The origins of the vertebral arteries appear patent. Atherosclerotic plaque n oted in the origin of the left internal carotid artery which causes mild narrowing of the vessel. [place] of the right vertebral artery appears fully patent. The more superior portions of the vertebral arteries demonstrate normal course and caliber. They join to form a normal appearing basilar artery. Soft tissues: Visualized neck soft tissues demonstrate no suspicious abnormalities. The thyroid is normal in size . Bones: No suspicious bony lesions. No spine Visualized cervical spine appears normally aligned. IMPRESSION: No large vessel occlusion, hemodynamically significant vascular stenosis, vascular dissection or ane urysm. The estimate of stenosis included in the report of the imaging study was calculated using the NASCET method Reviewed by: Ce Salazar MD, PhD on 02/11/2021 7:40 AM PDT Approved by: Ce Salazar MD, PhD on 02/11/2021 7:40 AM PDT Station ID: [id number]
[2021-02-11 07:49] LABS: CHOL/HDL RATIO 3.6 (<4.4); CHOLESTEROL 238 mg/dL; HDL CHOLESTEROL 67 mg/dL; LDL CHOLESTEROL,CALCULATED 154 mg/dL; LDL/HDL RATIO 2.3 (<4.4); TRIGLYCERIDES 85 mg/dL; VLDL CHOLESTEROL 17 mg/dL
--- NOTE | 2021-02-11 08:11 | CT Report ---
PROCEDURE: ANGIO HEAD W/WO INDICATIONS: LUE tingling/numbness, now resolved CONTRAST: IV CONTRAST: Isovue 300 ml: 100 PO CONTRAST: *NO PO CONTRAST TECHNIQUE: Precontrast 4.5 mm thick angled axial sections acquired from the foramen magnum to the vertex. Afte r the administration of intravenous contrast, 1 mm thick sections acquired through the [place] of [place] is. Postcontrast 4.5 mm thick sections then re-acquired from the foramen magnum to the vertex. 3-di mensional wuhddhf-ponxmuzfu-acgeqjyvkb (MIP) and/or volume rendering reformats were acquired of the c entral intracranial vasculature. For radiation dose reduction, the following was used: automated ex posure control, adjustment of mA and/or kV according to patient size. COMPARISON: CT head 12/28/2017. FINDINGS: Image quality: Excellent. Anterior circulation: Intracranial internal carotid arteries are normal in flow. Atherosclerotic jordy iccation is noted in the cavernous segments of the internal carotid arteries bilaterally and the clin oid segment of the left internal carotid artery which causes mild narrowing of the vessels. The flow within the paired anterior cerebral arteries is normal. 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 The flow within the middle cerebral arteries is normal. Mild atheros clerotic irregularity noted in the M1 segment left middle cerebral artery which causes mild to modera te stenosis. Right middle cerebral artery appears fully patent. The anterior communicating artery is seen. No aneurysms are seen. Posterior circulation: Visualized portions of the vertebral arteries demonstrate normal caliber, and join to form a normal appearing basilar artery. Flow within the posterior cerebral arteries is norm al and symmetric. No aneurysms are seen. Dural sinuses demonstrate normal postcontrast enhancement. CSF spaces: Ventricles are normal in size and shape. Basal cisterns are patent. No extra-axial flu id collections. Brain: No midline shift. No intracranial bleeds. 1.5 x 1.0 cm calcified left frontal convexity extr a-axial mass versus calvarial exostosis is stable compared to 12/28/2017. [place]-white matter interface appears intact. Skull and face: Calvarium and facial bones appear intact, without suspicious lesions. Sinuses: Visualized sinuses and mastoids are clear. IMPRESSION: 1. No acute intracranial disease process. 2. No large vessel occlusion, hemodynamically significant vascular stenosis, vascular dissection or a neurysm. Reviewed by: Ce Salazar MD, PhD on 02/11/2021 8:10 AM PDT Approved by: Ce Salazar MD, PhD on 02/11/2021 8:10 AM PDT Station ID: [id number]
[2021-02-11] MEDS ORDERED: ENOXAPARIN 40 MG/0.4 ML SYRINGE SUBQ SCH (09:00)
[2021-02-11] MEDS ORDERED: SODIUM CHLORIDE FLUSH 0.9% 10 ML SYRINGE IVP SCH (09:00)
[2021-02-11 09:14] LABS: B. PARAPERTUSSIS- RESP PCR PAN NOT DETECTED; B. PERTUSSIS- RESP PCR PANEL NOT DETECTED; C. PNEUMONIAE- RESP PCR PANEL NOT DETECTED; CORONAVIRUS 229E-RESP PCR NOT DETECTED; CORONAVIRUS HKU1-RESP PCR NOT DETECTED; CORONAVIRUS NL63-RESP PCR NOT DETECTED; CORONAVIRUS OC43-RESP PCR NOT DETECTED; HUMAN METAPNEUMOVIRUS NOT DETECTED; INFLUENZA A- RESP PCR PANEL NOT DETECTED; INFLUENZA B - RESP PCR PANEL NOT DETECTED; M. PNEUMONIAE- RESP PCR PANEL NOT DETECTED; PARAINFLUENZA VIRUS 1 NOT DETECTED; PARAINFLUENZA VIRUS 2 NOT DETECTED; PARAINFLUENZA VIRUS 3 NOT DETECTED; PARAINFLUENZA VIRUS 4 NOT DETECTED; RHINOVIRUS/ENTEROVIRUS NOT DETECTED; RSV- RESP PCR PANEL NOT DETECTED; SARS-CoV-2 -RESP PCR PANEL NOT DETECTED
--- NOTE | 2021-02-11 09:45 | MRI Report ---
PROCEDURE: Brain W/O INDICATIONS: Neuro deficit. TECHNIQUE: Noncontrast axial T1 spin echo, axial T2 fast spin echo, sagittal and axial FLAIR, coronal T2 fast sp in echo, axial gradient echo, axial diffusion and ADC through the brain. COMPARISON: CT angiography examination dated 02/11/2021 FINDINGS: Image quality: Excellent. CSF Spaces: Basal cisterns are patent. No extra-axial fluid collections. Ventricles are normal in size and shape. Brain: No intracranial masses or hemorrhage. Mild diffuse cerebral volume loss. Mild degree of patc hy high FLAIR signal foci within the periventricular and subcortical white matter. [place]/white matter interface is normal. Brainstem appears normal. Diffusion-weighted images demonstrate no acute ische hebert insult. No chronic ischemic insults. Normal intravascular flow voids are present. Skull and face: Calvarium has normal marrow signal. Orbits appear normal. Sinuses: Sinuses and mastoids are clear. IMPRESSION: 1. No acute process. No recent infarct. 2. Mild volume loss and small vessel ischemic disease. Reviewed by: Pelon Milner MD on 02/11/2021 9:44 AM PDT Approved by: Pelon Milner MD on 02/11/2021 9:44 AM PDT Station ID: [id number]
--- NOTE | 2021-02-11 10:10 | HISTORY & PHYSICAL EXAMINATION ---
Chief Complaint - Chief Complaint Chief Complaint: Left arm tingling and numbness History of Present Illness - Admitted From Admitted From:: Home via POV - History Obtained From Records Reviewed: [facility] History obtained from: Dr. Camp and the patient Exam Limitations: None - History of Present Illness HPI Comment/Other: 80-year-old female whose major medical illnesses in the past have consisted of high blood pressure and osteoarthritis that presents with left arm numbness and tingling. Also slightly disoriented. It started at 3 in the morning and woke her from sleep. She has intermittent neck pain in the past. She has also had nerve released at the left elbow for numbness and tingling. She also has had carpal tunnel syndrome with wrist release on that same hand as well. She takes Tylenol for. She does not ever remember causing pain down her arms before. She presented to the emergency room about an hour and a half later. Initial presentation had a temperature of 36.3. Heart rate 78. Blood pressure 133/103. Respirations 13 and she is 100% on room air. She was alert and oriented. Cranial nerves were intact. No focal deficits. However she had some difficulty with cerebellar exam. Woifvk-ao-qkjg test was hard for her to do. CT of the head is negative. For acute stroke. She does not have any large vessel occlusion or hemodynamically significant vascular stenosis. 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 Mild atherosclerotic irregularity is noted in the M1 segment of the left middle cerebral artery. Mild to moderate stenosis. But this is on the opposite side though to be giving her problems. By the time she was placed in [facility], she says all of her symptoms were completely gone. She is now placed in observation for a TIA. History - Past Medical History Cardiovascular: reports: Hypertension, High cholesterol Respiratory: reports: Asthma, Shortness of breath Neuro: reports: Other (vertigo) Endocrine/Autoimmune: reports: HyPOthyroidism GI: reports: GERD PATROL LADY: reports: Other (G0, P0) : reports: None HEENT: reports: Chronic vision loss (Has to wear glasses now), Chronic hearing loss (But she does not want a hearing aid yet) Psych: reports: Depression Musculoskeletal: reports: Osteoarthritis (Mainly in her hands) Derm: reports: None MRSA Hx?: No Other Past Medical History: Dizziness - Past Surgical History Ortho: reports: Carpal Tunnel surgery, Other (nerve release at elbow) HEENT: reports: Cataracts - Family & Social History Family History Comment/Other: She never really kept in contact with her family when she left the [employer] [employer]. She knows her mom around the age of 76 but does not know which she of. Dad at age 63, and she does not know what he of. She has six siblings and four of them have . Again she has no idea what they have of. No children Living arrangement: At home Living Situation: With spouse/s.o. Social History Notes: Born in the [place]. her who was in the [place] there. Never had a problem with alcohol abuse. She started smoking around the age of 23. Smoked 1 cigarette a day for 20 years. She says that she would smoke a third in the morning, another third in the later in the day, and a third at night. She would carefully put them out and hold them for the rest of the day. No history of recreational substance abuse. 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 She did work for a couple of years here in the [facility] when she her but he did not want her to work so she quit work. They did eventually adopt a child since they were not able to have their own children. - Substance History Use: Uses substance without health or social issues: NONE Abuse: Recurrent use of substance despite neg consequences: NONE Dependence: Experiences withdrawal or developed tolerances: NONE - POLST Patient has POLST: No POLST Status: Full Code Meds/Allgy - Home Medications Home Medications: Ambulatory Orders Medication Instructions Recorded Confirmed Albuterol [Ventolin Hfa] 2 puffs INH Q4H PRN 03/22/14 04/16/16 Aspirin [Aspir 81] 81 mg ORAL DAILY 03/22/14 04/16/16 Levothyroxine [Synthroid] 50 mcg ORAL DAILY 03/22/14 02/11/21 Omeprazole/Sodium Bicarbonate 20 mg ORAL BID 03/22/14 02/11/21 [Omeprazole-Bicarb 20-1,100 Cap] Cholecalciferol (Vitamin D3) 2,000 unit PO 12/28/17 [Vitamin D] Ca/D3/Mag Ox/Zinc/Sales Producer/Antonio/Bor 600 tab PO 06/23/18 [Calcium [id number] Chw Tb] Chlorpheniramine Maleate [Allergy 4 mg PO PRN 06/23/18 4-Hour] Cholecalciferol (Vitamin D3) 2,000 unit PO 06/23/18 [Vitamin D3] Garlic 1,250 mg PO 06/23/18 Ibuprofen 200 tab PRN 06/23/18 Multivitamin [Multivitamins] 1 06/23/18 [place]-3/Dha/Epa/Fish Oil [Fish Oil 2 each PO 06/23/18 1,000 mg Softgel] hydroCHLOROthiazide [Hydrodiuril] 12.5 mg PO DAILY 02/11/21 02/11/21 - Allergies Allergies/Adverse Reactions: Allergies Allergy/AdvReac Type Severity Reaction Status Date / Time Uvmbjfu-Bvb-Jdm Reductase AdvReac Unknown Verified 02/11/21 04:53 Inhibitor Review of Systems - Constitutional Constitutional: denies: Fatigue, Fever, Chills, Malaise, Weakness, Poor appetite, Diaphoresis - Eyes Eyes: reports: Blurred vision, Vision loss, Corrective lenses. denies: Pain, Irritation, Amaurosis, Spots in vision, Field loss - Ears, Nose & Throat Ears, Nose & Throat: reports: Hearing loss, Vertigo, Nasal obstruction, Nasal congestion, Postnasal drainage. denies: Ear pain, Hearing aids, Tinnitus, Sore throat, Hoarseness - Cardiovascular Cariovascular: reports: Chest pain (left sided along axilla. If she lifts her arm straight up and stretches to the ceiling the pain goes away. Ongoing for months.), Lightheadedness. denies: Irregular heart rate, Palpitations, Edema, Syncope, Exertional dyspnea, Decr. exercise tolerance - Respiratory Respiratory: reports: SOB with exertion. denies: Cough, Sputum production, Wheezing, Snoring, Hemoptysis, Orthopnea, SOB at rest - Gastrointestinal Gastrointestinal: reports: Constipation ("I make poop like a goat". tries to use prune juice.), Reflux/heartburn, Bloating. denies: Abdominal pain, Abdominal distention, Diarrhea, Change in bowel habits, Black stools, Bloody stools, Nausea - Genitourinary Genitourinary: denies: Dysuria, Frequency, Urgency, Hematuria - Musculoskeletal Musculoskeletal: reports: Stiffness (in hands. "my knees are great") - Integumentary Integumentary: denies: Rash, Pruritis, Lesions - Neurological Neurological: reports: Headache (The top of her head feels like she is carrying a severe pinpoint weight when she tries to take cholesterol medicine.), Memory problems (She says that her memory is just fine). denies: General weakness, Focal weakness - Psychiatric Psychiatric: reports: Depression, Anxiety. denies: Suicidal, Delusions, Hallucinations, Homicidal - Endocrine Endocrine: reports: Intolerance to cold. denies: Polyuria, Polydypsia, Poly phagia - Hematologic/Lymphatic Hematologic/Lymphatic: denies: Anemia, Bruising, Petechiae Prior Level of Functionality: Independent with activities of daily living. She feeds her self, dresses herself, takes care of her own home. Exam - Vital Signs Reviewed Vital Signs: Yes Vital Signs: Vital Signs x48h Temp Pulse Resp BP BP Pulse Ox 02/11/21 09:45 36.3 C L 18 158/87 H 98 02/11/21 08:23 74 21 163/94 H 92 02/11/21 06:46 36.6 C 70 18 159/87 H 98 02/11/21 05:27 67 25 H 175/89 H 97 02/11/21 04:44 36.3 C L 78 13 133/103 H 100 - Physical Exam General Appearance: positive: No acute distress, Alert, Other (Absolutely delig htful 4 foot 9 inch female who is 53.2 kg. Wonderful conversationalist, great sense of humor.) Eyes Bilateral: positive: PERRL, EOMI ENT: positive: No signs of dehydration Neck: positive: No JVD. negative: Stiff neck, Carotid bruit Respiratory: positive: No respiratory distress. negative: Wheezes, Rales, Rhonchi Cardiovascular: positive: Regular rate & rhythm. negative: Systolic murmur, Gallop/S4, Friction rub Peripheral Pulses: positive: 1+ Abdomen: positive: Non-tender, No organomegaly, Nml bowel sounds, No distention Skin: positive: Warm, Dry. negative: Pallor Extremities: positive: Full ROM, No pedal edema Neurologic/Psychiatric: positive: Oriented x3, CN's nml (2-12), Motor nml (Cerebellar acdohx-aq-coji is intact for me.). negative: Facial droop, Slurred/abnml speech, Depressed mood/affect Conclusion/Plan - Problem List (1) Numbness of extremity Conclusion/Plan: She has a history of tension headaches, neck pain. Possibility of cervical radiculopathy versus TIA. In the emergency room she had cjiufr-fq-cudj problems. On my exam those resolved. She is already on aspirin. She takes omega-3 fish oils. She is not on a statin. She says every time she tries to take a statin it feels like a pinpoint heavy pain burrowing into her skull. She is mildly hypertensive here. Systolic is 130s to 170s. Diastolic is 80s to low 100s. In looking at her previous ER records she is consistently hypertensive in all of her medical records. This goes all the way back to 2014. Plan: Observation status MRI Echocardiogram Add Plavix Start lisinopril (2) Hypertension Conclusion/Plan: She is not on any antihypertensives. I would recommend she be started on an SANTA inhibitor and be kept on that. Be followed up with her primary care provider in the outpatient setting. Qualifiers: Hypertension type: primary hypertension Qualified Code(s): I10 - Essential (primary) hypertension (3) Hyperlipidemia Conclusion/Plan: Cholesterol 238, LDL 154, HDL 67, triglyceride 85. It is a wonderful HDL that she has. At this time for risk factor modification I would recommend that she be placed on some type of lipid-lowering drug. She states that she is allergic to statins. She would be candidate for less effective medication such as Zetia, Questran, and a very low-fat diet. Qualifiers: Hyperlipidemia type: pure hypercholesterolemia Qualified Code(s): E78.00 - Pure hypercholesterolemia, unspecified; E78.0 - Pure hypercholesterolemia (4) Hyperglycemia Conclusion/Plan: Mild. In the ER she is only 118. Previous glucoses in the EMR however anywhere between 119-183. Check A1c - Lab Results Lab results reviewed: Yes Fish Bones: 02/11/21 05:16 02/11/21 05:16 - Diagnostic Imaging Results Diagnostic Imaging Results: positive: Final report reviewed - EKG Results EKG Interpreted Independently: No EKG Comparison: No prior EKG Core Measures - Anticipated LOS I expect patient to be DC'd or transferred within 96 hours.: Yes - DVT/VTE - Prophylaxis VTE/DVT Device ordered at admit?: Yes
[2021-02-11 10:30] LABS: ESTIMATED AVERAGE GLUCOSE 131 mg/dL (70-100); HEMOGLOBIN A1c% 6.2 % (4.27-6.07)
[2021-02-11 12:30] VITALS: BP 155/64
--- NOTE | 2021-02-11 12:30 | Discharge Plan ---
Discharge Plan Problem Reviewed?: Yes Disposition: Home, Self Care Condition: Stable Prescriptions: lisinopriL [Zestril] 5 mg PO DAILY #30 tablet Diet: Cardiac Activity Restrictions: Activity as Tolerated Shower Restrictions: No Driving Restrictions: No Instruction Topics: TIA Health Concerns: You presented to the emergency room with left arm numbness and tingling that woke you up from her sleep. You came and we found you to have high blood pressure. But everything else was normal. Your finger test where we tried to have you touch your nose and then the doctor's finger was a little bit wobbly. But by the time you got to your room in the hospital everything had gone away. No numbness or tingling in the wobbly finger exam was normal again. CT scan of your head was negative for stroke. The blood supply to your brain was visualized with an angiogram and that was normal other than some congenital defe cts. MRI of your brain was normal. And a preliminary report for your ultrasound of your heart looking for holes in your heart or valvular heart disease was also normal. We did find that your blood pressure was consistently high. It was in the 130s to 160s. And your cholesterol was also quite high at 238. Bad cholesterol/LDL was 154. Good cholesterol/HDL was very good and high at 67. You also have borderline diabetes and your measurement for that is something called glycosylated hemoglobin. Normal is below 6%. Yours was 6.2%. Because you have a history of a nerve release, and carpal tunnel syndrome, and possibly arthritis in your neck, I think your left arm numbness was more due to arthritis in your neck with a pinched nerve than it was from a stroke. Plan of Treatment: 1. You have all of the risk factors to have a stroke. Age, high blood pressure, high cholesterol, and high glucose. None of the numbers are severely elevated. Nevertheless, all of them added together will increase your risk. 2. Start a blood pressure pill. Low-dose. And I have opted to start you on lisinopril 5 mg a day. 3. Since you cannot take cholesterol medicine, it gives you a severe headache on top of your head, reduced the amount of pasta, rice, potatoes and bread that you eat. Eat only grilled meat such as grilled fish/steak/pork/chicken. Lots of fruits and vegetables are perfect. Avoid desserts. Take a walk every day for 15 to 30 minutes. If you can do all of these things, it would lower your blood pressure, lower your sugar, and lower your cholesterol. 4. Continue to take your aspirin a day. We did think about adding a stronger medicine to thin out your blood, but we think that you may just have a pinched nerve in your neck causing her left arm to be numb so we did want to give you that medicine. 5. Please see your primary care provider, Dr. Perez, in the next 1 to 2 weeks. Care Goals: To reduce your risk of stroke. Assessment: Patient understands care goals. She says she is dubious that she may be able to follow through on the exercise. But she will try. No Smoking: If you smoke, Please STOP! Call for help. Follow-up with: ZACH PEREZ [Primary Care Provider] -
--- NOTE | 2021-02-11 12:37 | DISCHARGE SUMMARY ---
"Discharge Summary Admit Date: 02/11/21 Discharge Date: 02/11/21 Discharging Provider: Nicol Henry MD Primary Care Provider: Alice Stokes MD [facility] Code Status: Attempt Resuscitation Condition at Discharge: Stable Discharge Disposition: 01 Home, Self Care - DIAGNOSES Discharge Diagnoses with Status of Each Condition: 1. Numbness of left upper extremity 2. Hypertension 3. Hyperlipidemia 4. Type 2 diabetes mellitus with A1c 6.2% - HPI History of Present Illness: Patient was in the hospital less than 6 hours. Please refer to detailed history and physical - CONSULTS | PROCEDURES Procedures: 1. Chest x-ray 2. Neck CT angiogram 3. Head CT angiogram 4. MRI of brain 5. Echocardiogram - HOSPITAL COURSE Hospital Course: She was awakened from sleep at 3 in the morning with left upper extremity numb ness and tingling. No dysphagia, no dysarthria, no other numbness or weakness. No dysesthesia of the face. By the time she got to [facility] all the symptoms had resolved. She has a history of chronic neck pain as well as carpal tunnel release on the left and an ulnar nerve release on the left. Work-up was an MRI of the head which was negative for stroke. CT of the head with CT angiogram which showed hypoplastic anatomy on one side, and is mild stenosis of the M1 distribution on the other side. The stenosis was on the left and would have affected the right arm. As such we do not think this was clinically significant. Preliminary echocardiogram is negative for valvular heart disease or a PFO or an ASD. She was in sinus rhythm. She was discharged in stable condition. We discussed the fact that her blood pressure was consistently elevated while here. She has been seen in our emerg ency room over the last few years very rarely. But all of those visits also show consistently elevated blood pressure. The highest she was was 163/94. I have asked her to start lisinopril 5 mg a day and to be followed up by her primary care provider. Cholesterol was elevated at 238. LDL 154. VLDL 17. HDL 67. I recommended a statin to reduce her risk of heart attack or stroke but she says that when she takes a statin she has a pinpoint heavy pain that feels like it is burrowing into her skull. She would rather not take it. Discharge exam had a temperature 36.4. Pulse 74. Blood pressure 155/64. She is 4 foot 9 inches tall and weighs 53.2 kg. She is an absolutely delightful [place] female who has a wonderful sense of humor and made me burst out laughing several times during my exam. No facial droop. Speech is normal. Wearing glasses and is slightly deaf. Neck is supple without goiter or bruit. Lungs are clear to auscultation and percussion and are without crackles rhonchi wheezing. PMI normally placed with a regular rate and rhythm and no murmurs. The abdomen is soft, obese, nontender without organomegaly. Extremities have no edema. Neurologically other than her deafness, cranial nerves appear intact. No gross focal motor deficits. No cerebellar findings. - ALLERGIES Allergies/Adverse Reactions: Allergies Allergy/AdvReac Type Severity Reaction Status Date / Time Frpqvxu-Rvd-Fka Reductase AdvReac Unknown Verified 02/11/21 04:53 Inhibitor - MEDICATIONS Home Medications: Ambulatory Orders Medication Instructions Recorded Confirmed Albuterol [Ventolin Hfa] 2 puffs INH Q4H PRN 03/22/14 02/11/21 Aspirin [Aspir 81] 81 mg ORAL DAILY 03/22/14 02/11/21 Levothyroxine [Synthroid] 50 mcg ORAL DAILY 03/22/14 02/11/21 Omeprazole/Sodium Bicarbonate 20 mg ORAL DAILY 03/22/14 02/11/21 [Omeprazole-Bicarb 20-1,100 Cap] Cholecalciferol (Vitamin D3) 2,000 unit PO DAILY 06/23/18 02/11/21 [Vitamin D3] Garlic 1 cap PO DAILY 06/23/18 02/11/21 Ibuprofen 200 mg PO Q6H PRN 06/23/18 02/11/21 [place]-3/Dha/Epa/Fish Oil [Fish Oil 1 - 2 cap PO BID 06/23/18 02/11/21 1,000 mg Softgel] Calcium Carbonate/Vitamin D3 1 tab PO DAILY 02/11/21 02/11/21 [Calcium 500 mg Chewable Tablet] Cyclosporine [Restasis Multidose] 1 drops EACHEYE BID 02/11/21 02/11/21 lisinopriL [Zestril] 5 mg PO DAILY #30 tablet 02/11/21 - LABS Result Diagrams: 02/11/21 05:16 02/11/21 05:16"
--- NOTE | 2021-02-11 12:56 | PHARMACY PROGRESS NOTE ---
- Best Possible Medication History Admit Date and Time: 02/11/21 0709 Processed by: Pharmacy Medication History completed: Yes Patient Interview: Completed Secondary Source(s): Spouse/Significant other, Pharmacy records, Insurance records As the person ultimately responsible for medication therapy, providers are able to order a medication from an existing home medication list in [facility] via the "Reconcile Routine" prior to Confirmation of that medication by residential direct support professional. Such practice is discouraged except when the physician, in their clinical judgment, deems that a medical need exists for a medication without regard to previous use.
== END 2021-02-11 13:10 | disposition home or self-care (01) ==
LOC: ED 04:35 → MS2 07:09
PROVIDERS: ADMIT Internal Medicine; ATTEND Internal Medicine
DX: R20.0 Anesthesia of skin (principal); I10 Essential (primary) hypertension; E78.5 Hyperlipidemia, unspecified; E11.65 Type 2 diabetes mellitus with hyperglycemia; G89.29 Other chronic pain; M54.2 Cervicalgia; Q28.3 Other malformations of cerebral vessels; E03.9 Hypothyroidism, unspecified; K21.9 Gastro-esophageal reflux disease without esophagitis; H54.7 Unspecified visual loss; H91.90 Unspecified hearing loss, unspecified ear; M19.90 Unspecified osteoarthritis, unspecified site; Z20.822 Contact with and (suspected) exposure to COVID-19; Z79.82 Long term (current) use of aspirin; Z79.899 Other long term (current) drug therapy; Z87.891 Personal history of nicotine dependence; Z98.890 Other specified postprocedural states
CPT/HCPCS: 36415; 70496; 70498; 70551; 71045; 80053; 80061; 83036; 83690; 84484; 85025; 87631; 93005; 93306; 99284; 99285; A9270; G0378; Q9967; 0202U; 83721

== ENCOUNTER 2022-03-15 15:51 | Emergency (ER) | payer MEDICARE, OTHER ==
--- NOTE | 2022-03-15 16:14 | ED Physician Documentation ---
PD HPI CHEST PAIN - Stated complaint Stated Complaint: CHEST PX - Chief complaint Chief Complaint: Cardiac - History obtained from History obtained from: Patient, Family - Additional information Additional information: 81-year-old woman with history of hypertension albeit not on blood pressure medicines, and very remote tobacco abuse in remission presents with chest pain starting at 10 AM today. She was at rest. It is a sharp pain in the lateral left breast, nonradiating. It is worse when she coughs and she does have a chronic cough which is not worse than normal. She is not short of breath with it. No sweats, no pedal edema or calf pain. No clear exertional component to it, that said she has not really exerted herself today. She is here with her . 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 (G0, P0) : None HEENT: Chronic vision loss (Has to wear glasses now), Chronic hearing loss (But she does not want a hearing aid yet) Psych: Depression Musculoskeletal: Osteoarthritis (Mainly in her hands) Derm: None - Past Surgical History Past Surgical History: Yes Ortho: Carpal Tunnel surgery, Other (nerve release at elbow) HEENT: Cataracts - Present Medications Home Medications: Ambulatory Orders Medication Instructions Recorded Confirmed Albuterol [Ventolin Hfa] 2 puffs INH Q4H PRN 03/22/14 03/15/22 Aspirin [Aspir 81] 81 mg ORAL DAILY 03/22/14 03/15/22 Levothyroxine [Synthroid] 50 mcg ORAL DAILY 03/22/14 03/15/22 Cholecalciferol (Vitamin D3) 2,000 unit PO DAILY 06/23/18 03/15/22 [Vitamin D3] Garlic 1 cap PO DAILY 06/23/18 03/15/22 Ibuprofen 200 mg PO Q6H PRN 06/23/18 02/11/21 [place]-3/Dha/Epa/Fish Oil [Fish Oil 1 - 2 cap PO BID 06/23/18 03/15/22 1,000 mg Softgel] Calcium Carbonate/Vitamin D3 1 tab PO DAILY 02/11/21 03/15/22 [Calcium 500 mg Chewable Tablet] Cyclosporine [Restasis Multidose] 1 drops EACHEYE BID 02/11/21 03/15/22 lisinopriL [Zestril] 5 mg PO DAILY #30 tablet 02/11/21 03/15/22 Chlorpheniramine Maleate 4 mg PO DAILY PRN 03/15/22 03/15/22 Omeprazole Magnesium 20 mg PO DAILY 03/15/22 03/15/22 - Allergies Allergies/Adverse Reactions: Allergies Allergy/AdvReac Type Severity Reaction Status Date / Time Spmzidk-EHQ-OgB Reductase AdvReac Unknown Verified 03/15/22 15:55 Inhibitor [Clsgral-Ktw-Shk Reductase Inhibitor] - Social History Does the pt smoke?: No Smoking Status: Never smoker Does the pt drink ETOH?: Yes Does the pt have substance abuse?: No - Immunizations Immunizations are current?: No Immunizations: Other immun not current - POLST Patient has POLST: No POLST Status: Full Code PD ED PE NORMAL - Vitals Vital signs reviewed: Yes - General General: Alert and oriented X 3, No acute distress - HEENT HEENT: PERRL, EOMI - Neck Neck: Supple, no meningeal sign, No bony TTP - Cardiac Cardiac: RRR, No murmur, Other (Chest wall is nontender) - Respiratory Respiratory: No respiratory distress, Clear bilaterally - Abdomen Abdomen: Non tender - Extremities Extremities: No edema, No calf tenderness / cord - Neuro Neuro: Alert and oriented X 3, Normal speech Results - Vitals Vitals: Vital Signs - 24 hr 03/15/22 03/15/22 03/15/22 15:55 16:20 16:38 Temperature 36.5 C Heart Rate 70 70 74 Respiratory 16 18 19 Rate Blood Pressure 170/83 H 190/82 H 176/85 H O2 Saturation 98 96 98 03/15/22 17:05 Temperature 36 C L Heart Rate 70 Respiratory 20 Rate Blood Pressure 174/71 H O2 Saturation 98 Oxygen O2 Source Room air - EKG (time done) 1556 Rate: Rate (enter#) (70) Rhythm: NSR [place]: LAD Intervals: Normal [place] QRS: Low voltage Ischemia: Non specific changes. No: ST elevation c/w ischemia, ST depression Compare to prior EKG: Unchanged from prior EKG Computer interpretation: Agree with computer - Labs Labs: Laboratory Tests 03/15/22 03/15/22 03/15/22 16:28 16:28 16:28 WBC 5.6 RBC 5.38 Hgb 15.6 Hct 47.5 H MCV 88.3 MCH 29.0 MCHC 32.8 RDW 13.1 Plt Count 201 MPV 9.1 Neut # (Auto) 2.8 Lymph # (Auto) 2.2 [place] # (Auto) 0.3 Eos # (Auto) 0.2 Baso # (Auto) 0.1 Absolute Nucleated RBC 0.00 Nucleated RBC % 0.0 Sodium 139 Potassium 4.2 Chloride 100 L Carbon Dioxide 29 Anion Gap 10.0 BUN 15 Creatinine 0.5 Estimated GFR (MDRD) 119 Glucose 108 H Calcium 10.1 Total Bilirubin 0.7 AST 27 ALT 23 Alkaline Phosphatase 48 Troponin I High Sens 4.3 Total Protein 8.0 Albumin 4.4 Globulin 3.6 Albumin/Globulin Ratio 1.2 Lipase 49 - Rads (name of study) Single view chest x-ray is unremarkable. Radiology: EMP read contemporaneously PD MEDICAL DECISION MAKING - ED course ED course: 81-year-old woman presents with resolved chest pain with negative biomarkers. Heart score is 3 Departure - Departure Disposition: 01 Home, Self Care Clinical Impression: Chest pain Condition: Good Instructions: ED Chest Pain NonCardiac Comments: You are seen today for chest pain, thankfully your EKG and your cardiac enzymes did not show any real problem. You should follow-up with your primary care physician for recheck on Thursday, your blood pressure here was fairly high and this needs to be rechecked and potentially treated as well. Return if pain recurs.
--- NOTE | 2022-03-15 16:39 | XRAY Report ---
PROCEDURE: Chest 1 View X-Ray INDICATIONS: Chest Pain TECHNIQUE: One view of the chest was acquired. COMPARISON: 02/11/2021, 04/21/2015 FINDINGS: Surgical changes and devices: None. Lungs and pleura: No pleural effusions or pneumothorax. Lungs are clear. Mediastinum: The aorta is prominent and tortuous. The cardiac contours are within normal limits. Bones and chest wall: Age-appropriate degenerative changes are seen. No suspicious bony lesions. Overlying soft tissues appear unremarkable. IMPRESSION: Unremarkable portable chest study for age. Reviewed by: Kenyon Jaramillo MD on 03/15/2022 3:38 PM MICHEAL Approved by: Kenyon Jaramillo MD on 03/15/2022 3:38 PM MICHEAL Station ID: [id number]
[2022-03-15 16:41] LABS: BASOPHILS # (AUTO) 0.1 10^3/uL (0.0-0.1); BASOPHILS % (AUTO) 0.9 %; EOSINOPHILS # (AUTO) 0.2 10^3/uL (0.0-0.7); EOSINOPHILS % (AUTO) 3.4 %; HCT - HEMATOCRIT 47.5 % (37.0-47.0); HGB - HEMOGLOBIN 15.6 g/dL (12.0-16.0); LYMPHOCYTES # (AUTO) 2.2 10^3/uL (1.5-3.5); LYMPHOCYTES % (AUTO) 39.9 %; MEAN CORPUSCULAR HGB CONC 32.8 g/dL (32.0-36.0); MEAN CORPUSCULAR VOLUME 88.3 fL (81.0-99.0); MEAN PLATELET VOLUME 9.1 fL (7.9-10.8); MONOCYTES # (AUTO) 0.3 10^3/uL (0.0-1.0); MONOCYTES % (AUTO) 5.8 %; NEUTROPHILS # (AUTO) 2.8 10^3/uL (1.5-6.6); NEUTROPHILS % (AUTO) 49.8 %; PLT - PLATELET COUNT 201 10^3/uL (130-450); RED BLOOD COUNT 5.38 10^6/uL (4.20-5.40); RED CELL DISTRIBUTION WIDTH 13.1 % (12.0-15.0); WHITE BLOOD COUNT 5.6 x10^3/uL (4.8-10.8)
[2022-03-15 16:48] LABS: ALBUMIN 4.4 g/dL (3.2-5.5); ALBUMIN/GLOBULIN RATIO 1.2 (1.0-2.2); BILIRUBIN,TOTAL 0.7 mg/dL (0.2-1.0); CALCIUM 10.1 mg/dL (8.5-10.3); CREATININE 0.5 mg/dL (0.4-1.0); POTASSIUM 4.2 mmol/L (3.5-5.0)
[2022-03-15 17:14] VITALS: BP 174/71
== END 2022-03-15 17:30 | disposition home or self-care (01) ==
LOC: ED 15:51
DX: R07.9 Chest pain, unspecified (principal); I10 Essential (primary) hypertension
CPT/HCPCS: 36415; 80053; 83690; 84484; 85025; 93005; 99283; 99284

== ENCOUNTER 2023-02-28 02:57 | Emergency (ER) | payer MEDICARE, OTHER ==
--- NOTE | 2023-02-28 04:04 | ED Physician Documentation ---
History of Present Illness - Stated complaint Stated Complaint: LT SHOULDER PX - Chief complaint Chief Complaint: Ext Problem - History obtained from History obtained from: Patient, Family (spouse (in ED at bedside)) - Additonal information Additional information: Patient woke this morning at approximately 01:15 with left shoulder pain. Denies recent injury, denies h/o similar symptoms. No exacerbating nor ameliorating factors. Pain does not radiate. No cardiac medical history; ACS risk factors include HTN, hypercholesterolemia. Pain is not worse with movement and there is no pleuritic component. 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 HEENT: Chronic vision loss, Chronic hearing loss Psych: Depression Musculoskeletal: Osteoarthritis Derm: None - Past Surgical History Past Surgical History: Yes Ortho: Carpal Tunnel surgery, Other HEENT: Cataracts - Present Medications Home Medications: Ambulatory Orders Medication Instructions Recorded Confirmed Albuterol [Ventolin Hfa] 2 puffs INH Q4H PRN 03/22/14 02/28/23 Aspirin [Aspir 81] 81 mg ORAL DAILY 03/22/14 02/28/23 Levothyroxine [Synthroid] 50 mcg ORAL DAILY 03/22/14 02/28/23 Cholecalciferol (Vitamin D3) 2,000 unit PO DAILY 06/23/18 02/28/23 [Vitamin D3] Garlic 1 cap PO DAILY 06/23/18 02/28/23 [place]-3/Dha/Epa/Fish Oil [Fish Oil 1 - 2 cap PO BID 06/23/18 02/28/23 1,000 mg Softgel] lisinopriL [Zestril] 5 mg PO DAILY #30 tablet 02/11/21 02/28/23 Chlorpheniramine Maleate 4 mg PO DAILY PRN 03/15/22 02/28/23 Omeprazole Magnesium 20 mg PO DAILY 03/15/22 02/28/23 Acetaminophen [Acetaminophen Extra 1 - 2 tab PO Q6HR PRN 02/28/23 02/28/23 Strength] guaiFENesin [Mucinex] 600 mg PO BID PRN 02/28/23 02/28/23 - Allergies Allergies/Adverse Reactions: Allergies Allergy/AdvReac Type Severity Reaction Status Date / Time Zydhyur-YWC-XtC Reductase AdvReac Unknown Verified 03/15/22 15:55 Inhibitor [Nvwnohz-Gad-Ldh Reductase Inhibitor] - Social History Does the pt smoke?: No Smoking Status: Never smoker Does the pt drink ETOH?: Yes Does the pt have substance abuse?: No - Immunizations Immunizations are current?: No Immunizations: Other immun not current - POLST Patient has POLST: No POLST Status: Full Code PD ED PE NORMAL - Vitals Vital signs reviewed: Yes - General General: Alert and oriented X 3, No acute distress, Well developed/nourished - Neck Neck: Supple, no meningeal sign - Cardiac Cardiac: RRR, No murmur, No gallop, No rub - Respiratory Respiratory: No respiratory distress, Clear bilaterally - Abdomen Abdomen: Soft, Non tender - Extremities Extremities: No edema Results - Vitals Vitals: Oxygen O2 Source Room air - EKG (time done) No standard instances EKG releavant findings:: EKG personally interpreted by author of this note. Relevant findings are: Rate: Rate (enter#) (68) Rhythm: NSR [place]: LAD Intervals: Normal [place] QRS: Normal Ischemia: Normal ST segments - Labs Labs: Laboratory Tests 02/28/23 02/28/23 05:05 05:30 WBC 5.7 RBC 5.24 Hgb 15.0 Hct 47.2 H MCV 90.1 MCH 28.6 MCHC 31.8 L RDW 13.0 Plt Count 205 MPV 9.4 Neut # (Auto) 3.2 Lymph # (Auto) 2.0 [place] # (Auto) 0.3 Eos # (Auto) 0.2 Baso # (Auto) 0.1 Absolute Nucleated RBC 0.00 Nucleated RBC % 0.0 Sodium 140 Potassium 4.0 Chloride 101 Carbon Dioxide 35 H Anion Gap 4.0 L BUN 16 Creatinine 0.6 Estimated GFR (MDRD) 96 Glucose 123 H Calcium 10.3 Total Bilirubin 0.5 AST 21 ALT 19 Alkaline Phosphatase 51 Troponin I High Sens 5.5 Total Protein 7.0 Albumin 4.3 Globulin 2.7 Albumin/Globulin Ratio 1.6 Lipase 36 - Rads (name of study) chest xray Relevant Findings:: Prelim report reviewed, EMP independent interpretation of test (I reviewed these images and my interpretation is no acute cardiopulmonary abnormality), See rad report PD Medical Decision Making - ED course Complexity details: reviewed results, re-evaluated patient, considered differential, d/w patient, d/w family ED course: No concerning nor diagnostic findings on tonight's tests including blood tests (including hs-cTn), EKG, CXR. Etiology of patient's symptoms is not apparent. No rash on exam at this time to suggest herpes zoster. She has FROM left shoulder without exacerbation of pain, suggesting against musculoskeletal origin. Cardiac origin (angina/anginal equivalent) would be atypical presentation, but given risk factors including hypertension and high cholesterol, cardiac-oriented workup undertaken on this visit. Results d/w patient, return precautions reviewed. Advised to seek follow up with PCP, next available appointment, for reevaluation. Departure - Departure Disposition: 01 Home, Self Care Clinical Impression: Shoulder pain, left Condition: Good Instructions: ED Shoulder Pain UKO Comments: There were no concerning or diagnostic findings on tonight's tests including the blood work, chest x-ray, and the EKG. The cause of your pain is not apparent at this time. Follow-up with your primary care provider, next available appointment, for reevaluation. Forms: PCP List Discharge Date/Time: 02/28/23 06:55
[2023-02-28 05:12] LABS: BASOPHILS # (AUTO) 0.1 10^3/uL (0.0-0.1); BASOPHILS % (AUTO) 0.9 %; EOSINOPHILS # (AUTO) 0.2 10^3/uL (0.0-0.7); HCT - HEMATOCRIT 47.2 % (37.0-47.0); LYMPHOCYTES % (AUTO) 34.7 %; MEAN CORPUSCULAR HEMOGLOBIN 28.6 pg (27.0-31.0); MEAN CORPUSCULAR HGB CONC 31.8 g/dL (32.0-36.0); MEAN CORPUSCULAR VOLUME 90.1 fL (81.0-99.0); MEAN PLATELET VOLUME 9.4 fL (7.9-10.8); MONOCYTES # (AUTO) 0.3 10^3/uL (0.0-1.0); MONOCYTES % (AUTO) 4.8 %; NEUTROPHILS # (AUTO) 3.2 10^3/uL (1.5-6.6); NEUTROPHILS % (AUTO) 56.4 %; PLT - PLATELET COUNT 205 10^3/uL (130-450); RED BLOOD COUNT 5.24 10^6/uL (4.20-5.40); WHITE BLOOD COUNT 5.7 x10^3/uL (4.8-10.8)
[2023-02-28 05:52] LABS: TROPONIN I HIGH SENSITIVITY 5.5 ng/L (2.3-14.8)
[2023-02-28 05:53] LABS: ALBUMIN 4.3 g/dL (3.2-5.5); ALBUMIN/GLOBULIN RATIO 1.6 (1.0-2.2); BILIRUBIN,TOTAL 0.5 mg/dL (0.2-1.0); CALCIUM 10.3 mg/dL (8.5-10.3); CREATININE 0.6 mg/dL (0.6-1.3)
[2023-02-28 06:05] VITALS: BP 155/89
[2023-02-28 06:06] VITALS: O2SAT 98
--- NOTE | 2023-02-28 10:20 | XRAY Report ---
PROCEDURE: Chest 2 View X-Ray INDICATIONS: left shoulder pain TECHNIQUE: 2 views of the chest were acquired. COMPARISON: None. FINDINGS: Surgical changes and devices: None. Lungs and pleura: No pleural effusions or pneumothorax. Lungs are clear. Mediastinum: Mediastinal contours appear normal. Heart size is normal. Bones and chest wall: No suspicious bony lesions. Overlying soft tissues appear unremarkable. IMPRESSION: No acute cardiopulmonary process. Note: This final report is concordant with the preliminary after-hours interpretation provided by [facility], [facility] Reviewed by: Montrell Matt MD on 02/28/2023 9:19 AM MICHEAL Approved by: Montrell Matt MD on 02/28/2023 9:19 AM MICHEAL Station ID: [id number]
== END 2023-02-28 06:55 | disposition home or self-care (01) ==
LOC: ED 02:57
DX: M25.512 Pain in left shoulder (principal); I10 Essential (primary) hypertension; E78.00 Pure hypercholesterolemia, unspecified; E03.9 Hypothyroidism, unspecified; Z79.82 Long term (current) use of aspirin; Z79.899 Other long term (current) drug therapy
CPT/HCPCS: 36415; 80053; 83690; 84484; 85025; 93005; 99283; 99284